=== PATIENT | female | born 1950 | race American Indian/Alaskan Native ===

== ENCOUNTER 2016-10-29 11:09 | Outpatient (CLI) | payer MEDICARE, OTHER ==
--- NOTE | 2016-10-29 13:48 | Mammography Report ---
BILATERAL MAMMOGRAM: FINDINGS: The breast tissue is heterogeneously dense, which could obscure detection of small masses (approximately 50%-75% glandular). No mass, distortion, suspicious calcification, or skin change is seen. There is no significant change compared to prior study of October 2015. CAD was utilized. IMPRESSION: Negative mammogram. There is no mammographic evidence of malignancy. RECOMMENDATION: Follow-up per ACS guidelines. BI-RADS CATEGORY: 1 = Negative ACR BI-RADS MAMMOGRAPHIC CODES: 0 = Needs additional imaging evaluation; 1 = Negative; 2 = Benign; 3 = Probably benign; 4 = Suspicious; 5 = Malignant; 6 = Known biopsy-proven malignancy COMMENT: 1. Dense breast tissue, i.e., adenosis, fibrocystic changes, etc., may obscure an underlying neoplasm. 2. Approximately 10% of cancers are not detected with mammography. 3. A negative mammography report should not delay biopsy if a clinically suspicious mass is present. COMMENT: Patient follow-up letters are generated in [employer].
== END 2016-10-29 11:10 | disposition home or self-care (01) ==
LOC: SPVWC 11:09
PROVIDERS: ATTEND Obstetrics & Gynecology
DX: Z12.31 Encounter for screening mammogram for malignant neoplasm of breast (principal)
CPT/HCPCS: 77067; G0202

== ENCOUNTER 2017-11-15 12:55 | Outpatient (CLI) | payer MEDICARE, OTHER ==
--- NOTE | 2017-11-16 08:55 | Mammography Report ---
BILATERAL MAMMOGRAM: FINDINGS: The breast tissue is heterogeneously dense, which could obscure detection of small masses (approximately 50%-75% glandular). No mass, distortion, suspicious calcification, or skin change is seen. No significant changes when compared to exams dating back to October 2015. CAD was utilized. IMPRESSION: Negative mammogram. There is no mammographic evidence of malignancy. RECOMMENDATION: Follow-up per ACS guidelines. BI-RADS CATEGORY: 1 = Negative ACR BI-RADS MAMMOGRAPHIC CODES: 0 = Needs additional imaging evaluation; 1 = Negative; 2 = Benign; 3 = Probably benign; 4 = Suspicious; 5 = Malignant; 6 = Known biopsy-proven malignancy COMMENT: 1. Dense breast tissue, i.e., adenosis, fibrocystic changes, etc., may obscure an underlying neoplasm. 2. Approximately 10% of cancers are not detected with mammography. 3. A negative mammography report should not delay biopsy if a clinically suspicious mass is present. COMMENT: Patient follow-up letters are generated in [facility].
== END 2017-11-15 12:56 | disposition home or self-care (01) ==
LOC: SPVWC 12:55
PROVIDERS: ATTEND Obstetrics & Gynecology
DX: Z12.31 Encounter for screening mammogram for malignant neoplasm of breast (principal)
CPT/HCPCS: 77067

== ENCOUNTER 2018-11-20 13:55 | Outpatient (CLI) | payer MEDICARE, OTHER ==
--- NOTE | 2018-11-20 16:14 | Mammography Report ---
BILATERAL DIGITAL SCREENING MAMMOGRAM WITH CAD INDICATION: Routine screening mammography. TECHNIQUE: Digital bilateral 2D mammography was obtained in the craniocaudal and mediolateral obliq ue projections. This examination was interpreted with the benefit of Computer-Aided Detection analysi s. COMPARISON: 11/15/2017 FINDINGS: Breast Density: The breasts are heterogeneously dense, which may obscure small masses. There is no evidence of dominant mass, suspicious calcifications or architectural distortion in eith er breast. IMPRESSION:No mammographic evidence of malignancy. BI-RADS Category 1: Negative. No mammographic evidence of malignancy. Recommend routine screening m ammography in one year. A "normal" or negative report should not discourage follow up or biopsy of a clinically significant f inding. A written summary of these findings will be mailed to the patient. The patient will be entered into a mammography reporting system which will generate a reminder letter for the patient's next appointmen t at the appropriate interval. The [employer] recommends yearly mammograms starting at age 40 and continuing as l santiago as a woman is in good health. Breast MRI is recommended for women with an approximate 20-25% or greater lifetime risk of breast cancer, including women with a strong family history of breast or ova balbir cancer or who have been treated for Hodgkin's disease. Signer Name: Greg Saunders MD Signed: 11/20/2018 4:10 PM Workstation Name: [id number]
== END 2018-11-20 13:56 | disposition home or self-care (01) ==
LOC: SPVWC 13:55
PROVIDERS: ATTEND Obstetrics & Gynecology
DX: Z12.31 Encounter for screening mammogram for malignant neoplasm of breast (principal)
CPT/HCPCS: 77067

== ENCOUNTER 2019-01-03 13:14 | Outpatient (CLI) | payer MEDICARE, OTHER ==
--- NOTE | 2019-01-03 14:54 | Ultrasound Report ---
BILATERAL COMPLETE BREAST ULTRASOUND HISTORY: Bilateral breast pain. COMPARISON: 11/20/2018 screening mammogram. TECHNIQUE: Ultrasound examination of all 4 quadrants and the retroareolar area of each breast was per formed. FINDINGS: Sonographic evaluation of the right breast reveals no abnormality. Normal fibroglandular structures w ith no mass, cyst or shadowing. Ultrasound of the right axilla demonstrated no abnormal lymph nodes. Sonographic evaluation of the left breast reveals no distinct abnormality. Normal fibroglandular stru ctures with no mass, cyst or shadowing. Ultrasound of the left axilla demonstrated no abnormal lymph nodes. IMPRESSION Multiple bilateral breast ultrasound. If the clinical examination remains stable, recommend bilateral annual screening mammographic evaluat ion. BIRADS 1: Negative. Signer Name: Greg Saunders MD Signed: 01/03/2019 2:49 PM Workstation Name: [id number]
== END 2019-01-03 13:15 | disposition home or self-care (01) ==
LOC: SPVWC 13:14
PROVIDERS: ATTEND Surgery
DX: N64.4 Mastodynia (principal); N64.52 Nipple discharge

== ENCOUNTER 2020-12-26 11:01 | Outpatient (CLI) | payer MEDICARE ==
--- NOTE | 2020-12-26 17:35 | Mammography Report ---
DIGITAL SCREENING MAMMOGRAM WITH CAD, 12/26/2020 CLINICAL INFORMATION / INDICATION: Routine screening mammography. SCREENING MAMMO Z12.31 TECHNIQUE: Digital bilateral 2D mammography was obtained in the craniocaudal and mediolateral obliqu e projections. This examination was interpreted with the benefit of Computer-Aided Detection analysis . COMPARISON: 12/25/2019, 11/20/2018 and 11/15/2017 FINDINGS: Breast Density: There are scattered areas of fibroglandular density. No dominant mass, suspicious calcifications, or architectural distortion in either breast. IMPRESSION: No mammographic evidence of malignancy. Follow up recommendation: Routine yearly BI-RADS Category 1: Negative. A "normal" or negative report should not discourage follow up or biopsy of a clinically significant f inding. A written summary of these findings will be mailed to the patient. The patient will be entered into a mammography reporting system which will generate a reminder letter for the patient's next appointmen t at the appropriate interval. The [employer] recommends yearly mammograms starting at age 40 and continuing as l satniago as a woman is in good health. Breast MRI is recommended for women with an approximate 20-25% or greater lifetime risk of breast cancer, including women with a strong family history of breast or ova balbir cancer or who have been treated for Hodgkin's disease. Signer Name: Julio Cesar Walters DO Signed: 12/26/2020 5:31 PM Workstation Name: [id number]
== END 2020-12-26 11:02 | disposition home or self-care (01) ==
LOC: SPVWC 11:01
PROVIDERS: ATTEND Surgery
DX: Z12.31 Encounter for screening mammogram for malignant neoplasm of breast (principal)
CPT/HCPCS: 77067

== ENCOUNTER 2021-02-11 11:13 | Outpatient (CLI) | payer MEDICARE ==
--- NOTE | 2021-02-19 09:55 | Magnetic Resonance Report ---
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 TECHNIQUE: Axial T1 and T2-weighted fat sat images were obtained precontrast. 13 cc Clariscan contras t was injected intravenously and serial axial T1 weighted images with fat saturation were obtained. 3 -D MIP projections, kinetic analysis, and subtraction imaging were utilized to evaluate. A dedicated 8-channel breast coil was used for image acquisition. COMPARISON: Screening mammogram dated 12/26/2020. Breast MRI dated 01/29/2019. FINDINGS: BREAST DENSITY: Scattered areas of fibroglandular density. BACKGROUND ENHANCEMENT: Low level background enhancement within both breasts. RIGHT BREAST: No dominant mass or suspicious area of enhancement in the right breast. The nipple is d isplaced posteriorly and medially, likely due to positioning of the breast within the coil. LEFT BREAST: No dominant mass or suspicious area of enhancement in the left breast. AXILLAE: No pathologically enlarged axillary lymph nodes. ADDITIONAL FINDINGS: Limited imaging of the thorax and upper abdomen demonstrates no focal abnormalit y. IMPRESSION: 1. No MRI evidence of malignancy. Abnormal position of the right nipple as above is likely related to positioning of the breasts for this exam. The nipples appear symmetric and in their expected locatio ns on the mammogram performed in December 2020. Please correlate with physical exam findings. Follow up recommendation: Clinical exam BI-RADS Category 2: Benign. Signer Name: Rebel Garcia MD Signed: 02/19/2021 9:50 AM Workstation Name: [id number]
== END 2021-02-11 11:14 | disposition home or self-care (01) ==
LOC: SPVIMAG 11:13
PROVIDERS: ATTEND Surgery
DX: N60.19 Diffuse cystic mastopathy of unspecified breast (principal); Z80.3 Family history of malignant neoplasm of breast; Z80.41 Family history of malignant neoplasm of ovary
CPT/HCPCS: A9575; C8908; 77049

== ENCOUNTER 2022-01-12 11:30 | Outpatient (CLI) | payer MEDICARE ==
--- NOTE | 2022-01-13 09:53 | Mammography Report ---
DIGITAL SCREENING MAMMOGRAM WITH CAD, 01/12/2022 CLINICAL INFORMATION / INDICATION: Routine screening mammography. TECHNIQUE: Digital bilateral 2D mammography was obtained in the craniocaudal and mediolateral obliqu e projections. This examination was interpreted with the benefit of Computer-Aided Detection analysis . COMPARISON: 12/26/2020, 12/25/2019, 11/20/2018 FINDINGS: Breast Density: There are scattered areas of fibroglandular density. No dominant mass, suspicious calcifications, or architectural distortion in either breast. There has been no significant interval change. IMPRESSION: No mammographic evidence of malignancy. Follow up recommendation: Routine yearly screening mammogram. BI-RADS Category 1: NEGATIVE A "normal" or negative report should not discourage follow up or biopsy of a clinically significant f inding. A written summary of these findings will be mailed to the patient. The patient will be entered into a mammography reporting system which will generate a reminder letter for the patient's next appointmen t at the appropriate interval. The [employer] recommends yearly mammograms starting at age 40 and continuing as l s[place] as a woman is in good health. Breast MRI is recommended for women with an approximate 20-25% or greater lifetime risk of breast cancer, including women with a strong family history of breast or ova balbir cancer or who have been treated for Hodgkin's disease. Signer Name: Josey Arboleda MD Signed: 01/13/2022 9:48 AM Workstation Name: [id number]
== END 2022-01-12 11:31 | disposition home or self-care (01) ==
LOC: SPVWC 11:30
PROVIDERS: ATTEND Obstetrics & Gynecology
DX: Z12.31 Encounter for screening mammogram for malignant neoplasm of breast (principal)
CPT/HCPCS: 77067